=== PATIENT | male | born 1940 | race Caucasian/White ===

== ENCOUNTER 2018-05-03 13:27 | Emergency (ER) | payer MEDICARE, OTHER, SELFPAY ==
[2018-05-03 13:29] VITALS: BP 130/72; PULSE 58; RESP 17; TEMP 37.3; O2SAT 97; BMI 32.5
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
[2018-05-03 15:21] VITALS: PULSE 60; RESP 14; O2SAT 98
--- NOTE | 2018-05-03 21:06 | NURSING ---
PT OFFERED TETNUS SHOT BY ED . HE REFUSED.
== END 2018-05-03 15:21 | disposition home or self-care (01) ==
PROVIDERS: Emergency Provider Emergency Medicine; Family Provider Internal Medicine; PCP Family Medicine
DX: S01.111A Laceration without foreign body of right eyelid and periocular area, initial encounter (principal); Z95.1 Presence of aortocoronary bypass graft; Z79.82 Long term (current) use of aspirin; Z79.899 Other long term (current) drug therapy; W26.8XXA Contact with other sharp object(s), not elsewhere classified, initial encounter; Y93.89 Activity, other specified; Y92.008 Other place in unspecified non-institutional (private) residence as the place of occurrence of the external cause; Y99.8 Other external cause status
CPT/HCPCS: 12013; 99282

== ENCOUNTER 2018-09-24 22:08 | Emergency (ER) | payer MEDICARE, OTHER, SELFPAY ==
[2018-09-24 22:09] VITALS: BP 117/75; PULSE 70; RESP 16; TEMP 36.5; O2SAT 94; BMI 29.8
--- NOTE | 2018-09-24 22:35 | CT_ITS ---
STUDY: CT ABDOMEN AND PELVIS WITHOUT CONTRAST REASON FOR EXAM: Male, 77 years old. Left abdomen and flank pain with cough for one week RADIATION DOSAGE (If Supplied By Facility): CTDIvol = ( 16.74 ) mGy, DLP = ( 874.26 ) mGycm TECHNIQUE: Transaxial images were obtained from the dome of the diaphragm to the symphysis pubis without oral contrast, and without intravenous contrast. Sagittal and coronal images were reconstructed. Individualized dose optimization techniques were used for this CT. COMPARISON: None. FINDINGS: The visualized lung bases are unremarkable. The visualized portions of the heart are within normal limits. Median sternotomy wires. Normal liver. The gallbladder is contracted. Normal spleen. Normal pancreas. Normal bilateral adrenal glands. 1 mm nonobstructing right renal stone. Normal left kidney. Normal visualized stomach. Normal small intestine. There are multiple colonic diverticula consistent with diverticulosis. The appendix is visualized and appears normal. Normal abdominal aorta. Normal inferior vena cava. Normal retroperitoneum. Normal urinary bladder. Normal abdominal wall. There are diffuse degenerative changes of the visualized lumbar spine. 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 CT/Abdomen/Pelvis without Cont IMPRESSION: No evidence of acute intestinal pathology or acute obstructive uropathy. 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 Electronically Signed: Alejandro Ch MD at 0:50 EST Tel , Service support ,
[2018-09-24] MEDS: Ipratropium/Albuterol Sulfate 3 ML AMPUL.NEB INHALATION (22:40)
--- NOTE | 2018-09-24 22:52 | ED.DCSUM_ITS ---
- ER Visit Summary Date of Service: 09/24/18 Chief Complaint: Cough, abdominal pain History of Present Illness: The patient is a 77 M reports cough for the past 1 week. He is bringing up white sputum. He has had head congestion as well. He states last night he developed abdominal pain with cough. He states it feels like it is going to burst through. Today he reports having subjective fever and that he started to sweat. Physical Examination: Vital signs are unremarkable. His O2 sat is 94% on room air. Patient sitting upright in bed no acute distress. Head neck examination is unremarkable. Heart is regular rate and rhythm. Lung sounds are with rales bilaterally with occasional scattered wheezes. Abdomen is soft with mild left upper quadrant tenderness. No palpable hernia is noted. Test Results: CBC is unremarkable. Chemistry studies reveal BUN of 33 and a creatinine 1.46. I do not any labs for the last 2 years to compare to. Two- view chest x-ray shows no acute pulmonary pathology. CT flank shows no acute pathology. Emergency Department Course and Treatment: Patient is given DuoNeb treatment along with Hycodan. On repeat evaluation he states the cough is not quite as harsh. He will be given Tessalon and Zithromax. I believe is an abdominal wall strain from his coughing. I did discuss with him that he may have a hernia, but with no bowel loop caught at this time it is not easily visible on CT imaging. He will be given an abdominal binder to see if this helps with his pain as he coughs. He was instructed to make sure it sits below the ribs so as not to diminish his ability to take a deep breath. Treatment Plan: [] Disposition: Discharge Impression: 1. Bronchitis 2. Abdominal wall strain This note was generated with [employer] software. It may contain incorrect words, spelling, and punctuation that were not noted in review of the chart prior to signing ED Disposition - Plan for ED Patient: Chief Complaint: Cough Referrals: Arsenio Mc MD [Primary Care Provider] -
[2018-09-24 23:05] VITALS: O2SAT 95
[2018-09-24 23:09] LABS: Absolute Neutrophil Count 5.7 X10^3/uL (2.0-7.7); Basophil# 0.02 X10^3/uL; Basophil% 0.3 % (0-1); Eosinophil# 0.13 X10^3/uL; Eosinophils% 1.7 % (0-5); Hemoglobin 13.2 g/dl (13.0-16.5); Lymphocyte % 14.2 % (19-41); Mean Corp Hgb Conc 33.8 g/gl (32-36); Mean Corpuscular Hgb 30.8 pg (27.0-32.0); Mean Corpuscular Volume 91.1 fL (80-94); Mean Platelet Vol. 8.9 fl (6.2-12.0); Monocyte# 0.74 X10^3/uL; Monocyte% 9.6 % (0-10); Neutrophil # 5.74 X10^3/uL (2.7-7.7); Neutrophil % 74.1 % (47-70); Platelet Count 189 K/mm3 (150-450); RBC Distribution Width CV 13.1 % (11.6-14.6); RBC Distribution Width SD 43.5 fl (35.1-43.9); Red Blood Count 4.28 M/mm3 (4.6-6.2); White Blood Count 7.7 K/mm3 (4.4-11.0)
--- NOTE | 2018-09-24 23:10 | RAD_ITS ---
STUDY: X-RAY CHEST REASON FOR EXAM: Male, 77 years old. Cough TECHNIQUE: Frontal and lateral views COMPARISON: None. FINDINGS: Sternotomy wires are noted. The lungs are clear and expanded. There is no demonstrated pleural abnormality. Normal size heart. Normal mediastinum and trini. Normal visualized pulmonary arteries. Normal visualized aortic arch and descending thoracic aorta. Degenerative changes of the thoracic spine. Degenerative changes of the shoulders. There is no demonstrated abnormality of the visualized soft tissue structures of the upper abdomen. RAD/Chest PA and Lateral IMPRESSION: No acute pulmonary pathology of the chest. Electronically Signed: Tylor Nguyen DO at 23:40 EST Tel [phone], Service support ,
[2018-09-24 23:14] LABS: POSITIVE COUNT NO; POSITIVE DIFFERENTIAL NO; POSITIVE MORPHOLOGY NO
[2018-09-24 23:19] LABS: Anion Gap 7 (5-15); BUN 33 mg/dL (7-18); BUN/Creat Ratio 22.6 RATIO (10-20); Calcium,Total 8.5 mg/dL (8.5-10.1); Chloride 100 mmol/L (98-107); Creatinine, Serum 1.46 mg/dL (0.70-1.30); EST Glomerular Filtration Rate 49 mL/min (>60); Est Glom Filt Rate - Afr Amer 60 mL/min (>60); Estimated Creatinine Clearance 41.03 ml/min; Glucose 117 mg/dL (74-106); Potassium 3.6 mmol/L (3.5-5.1); Sodium Level 136 mmol/L (136-145)
[2018-09-24] MEDS: 0.9% Normal Saline 1,000 ML 150 ML IV (23:23)
[2018-09-24 23:26] VITALS: PULSE 82; RESP 20; TEMP 36.8; O2SAT 95
[2018-09-25] VITALS: BP 125/83; PULSE 81; RESP 18; TEMP 36.7; O2SAT 95
--- NOTE | 2018-09-25 00:57 | ED.DEP ---
ED Disposition - Plan for ED Patient: Disposition: Home or Assisted Living Chief Complaint: Cough Instructions: ED Upper Resp Infec Abx Tx, ED Strain Abdominal Muscle Prescriptions: Hydrocodone Bit/Homatropine [Hycodan Syrup] 5 ml PO Q6H PRN PRN 3 Days #80 ml PRN Reason: Cough Azithromycin [Zithromax] 250 mg PO DAILY #4 tablet Benzonatate [Tessalon Perle] 200 mg PO TID PRN PRN #20 capsule PRN Reason: Cough Referrals: Arsenio Mc MD [Primary Care Provider] - 5-7 Days
[2018-09-25] MEDS: Azithromycin 250 MG Tablet 500 MG PO (01:10)
[2018-09-25] MEDS: Benzonatate 100 MG Capsule 200 MG PO (01:10)
[2018-09-25 01:14] VITALS: BP 127/78; PULSE 86; RESP 22; O2SAT 100
== END 2018-09-25 01:24 | disposition home or self-care (01) ==
PROVIDERS: Emergency Provider Emergency Medicine; Family Provider Family Medicine; PCP Family Medicine
DX: J40 Bronchitis, not specified as acute or chronic (principal); S39.011A Strain of muscle, fascia and tendon of abdomen, initial encounter; Z79.82 Long term (current) use of aspirin; Z79.899 Other long term (current) drug therapy; X58.XXXA Exposure to other specified factors, initial encounter; Y93.89 Activity, other specified; Y92.89 Other specified places as the place of occurrence of the external cause; Y99.8 Other external cause status
CPT/HCPCS: 71046; 74176; 80048; 85025; 94640; 96360; 96361; 99284; J7030; A4216

== ENCOUNTER 2020-07-11 10:44 | Day surgery (SDC) | payer MEDICARE, OTHER, SELFPAY ==
[2020-07-11] VITALS (7 sets, daily range): BP systolic 95–155; BP diastolic 55–81; PULSE 59–63; RESP 16–18; TEMP 36.2–36.8; O2SAT 94–98; BMI 28.0
--- NOTE | 2020-07-11 07:48 | PCM.HP.BLA ---
History and Physical Date of Admission: 07/11/20 HISTORY AND PHYSICAL ? Yousif Churchill Followay 1940 ? REFERRING PHYSICIAN: Carina Edwards ([facility])* ? CHIEF COMPLAINT: Consult (Consult Colonoscopy) ? HPI: The patient is a 79 year old male referred for endoscopy. Yousif notes a history of intermittent blood in stool, sometimes mixed in stool and sometimes more in bowl. Notes some weight loss recently. A history of hemorrhoids. Patient denies any change in bowel habits, blood in stools, black tarry stools or abdominal pain. Denies family history of colon issues. ? Yousif has undergone prior endoscopy. Most recent colonoscopy 02/11/[address] Singh with hemorrhoids noted, It was recommended that he have another colonoscopy in 5 years due to a prior history of colon polyps. ? Patient's past medical history is significant for hypertension, s/p CABG and piror CT, hyperlipidemia, rheumatoid arthritis. He follows with Dr. Mc for his chronic medical conditions. Denies problems with sedation in the past. ? PAST MEDICAL HISTORY PAST MEDICAL HISTORY Diagnosis Date ? Acquired hypothyroidism 03/22/2008 ? Arthralgia 11/26/2010 ? Arthritis of left knee 03/29/2011 ? ASHD (arteriosclerotic heart disease) 01/03/2013 ? Sees Dr. Pacheco ? Atopic dermatitis 12/23/2013 ? Benign neoplasm of colon ? ? COLONIC POLYPS ? Carpal tunnel syndrome 11/09/2009 ? Chronic anticoagulation 10/21/2013 ? Chronic left shoulder pain 09/03/2017 ? Diverticulosis of large intestine ? ? DIVERTICULOSIS ? Eczema 12/23/2013 ? Elevated fasting blood sugar 09/03/2017 ? Essential hypertension 08/11/2006 ? Hematuria 10/21/2013 ? Hx of CABG 01/03/2013 ? Internal hemorrhoids ? ? Internal hemorrhoids without mention of complication ? ? Mixed hyperlipidemia 05/29/2005 ? Nocturia 05/29/2005 ? SHAILESH (obstructive sleep apnea) 05/19/2012 ? Patient refused treatment in the past. ? Rheumatoid arthritis (HCC) 09/03/2017 ? Has not wanted to see Rheum ? Status post total left knee replacement 06/15/2016 ? ? PAST SURGICAL HISTORY PAST SURGICAL HISTORY Procedure Laterality Date ? ARTERY BYPASS ? 10/05/12 ? Triple Coronary artery bypass, Dr. Kuldeep Jamil ? COLONOSCOP W/ OR W/O [facility] SPEC ? 05/20/01 ? Colonoscopy ? COLONOSCOP W/ OR W/O [facility] SPEC ? 08/05/05 ? Colonoscopy ? COLONOSCOP W/ OR W/O [facility] SPEC ? 02/11/2011 ? Colonoscopy ? LEFT HEART CATH,PERCUTANEOUS ? 1991 ? Cardiac cath, L heart ? SHOULDER SURGERY HX Left 2018 ? TOTAL HIP REPLACEMENT Left 2017 ? TOTAL KNEE REPLACEMENT Left 2014 ? ? ? CURRENT MEDICATIONS Current Outpatient Medications Medication Sig ? levothyroxine (SYNTHROID) 75 mcg tablet Take one tab by mouth Fri and two on Sundays. ? losartan-hydrochlorothiazide (HYZAAR) 100-25 mg per tablet Take 1 tablet by mouth once daily. ? pravastatin (PRAVACHOL) 80 mg tablet Take 1 tablet by mouth daily at bedtime. ? metoprolol succinate ER (TOPROL XL) 25 mg 24 hr tablet Take 1 tablet by mouth once daily. ? nitroglycerin sublingual (NITROQUICK) 0.4 mg SL tablet Dissolve 1 tablet under the tongue as needed. FOR CHEST PAIN. IF NO RELIEF CALL 911 ? pyridoxine (VITAMIN B-6) 100 mg ORAL tablet Take 1 tablet by mouth once daily. ? aspirin(ECOTRIN LOW STRENGTH 81 MG TAB) Take one(1) tablet daily. ? No current facility-administered medications for this visit. ? ? ALLERGIES: Hydroxychloroquine, Atenolol, and Lipitor [Atorvastatin Calcium] ? PERSONAL HISTORY: SOCIAL HISTORY Social History ? Tobacco Use ? Smoking status: Never Smoker ? Smokeless tobacco: Never Used Substance Use Topics ? Alcohol use: No ? Drug use: Not on file ? FAMILY HISTORY: FAMILY HISTORY FAMILY HISTORY Problem Relation Age of Onset ? other (CT) Father ? ? other (NATURAL CAUSES) Mother ? ? other (CT) Brother ? ? other (CABG) Brother ? ? Heart Brother ? ? None Sister ? ? None Sister ? ? ? REVIEW OF SYMPTOMS: The review of systems data was entered by the nurse and reviewed by me ? Nursing Notes: Malia Miner LPN 06/07/2020 10:12 AM Signed REVIEW OF SYSTEMS: General: The patient denies fatigue, NOTES weight loss, denies weight gain, denies feeling hot, and denies feelings of cold. Eyes: The patient denies glaucoma, denies eye injury/surgery, wears glasses or contacts. Ear/Nose/Throat: The patient denies allergies, denies hayfever, denies ear infections, and denies bloody noses. Cardiovascular: The patient denies chest pain, denies heart disease, denies high blood pressure,denies cardiac stent, denies prior heart attack, denies irregular heart beat, denies high cholesterol, denies poor circulation, denies heart failure, other cardiac issues, denies claudication, denies cold feet, denies peripheral arterial stent. Respiratory: The patient denies tuberculosis, denies pneumonia, denies frequent cough, denies pulmonary embolism, denies shortness of breath, and denies coughing up blood. Gastrointestinal: The patient denies difficulty swallowing, denies acid reflux, denies ulcers, denies vomiting, denies jaundice/hepatitis, denies gallbladder problems, denies black or tarry stools, denies hemorrhoids, denies bleeding from rectum, denies diverticulitis, denies constipation, denies diarrhea, denies loss of stool control, and denies hernias. Kidney/Bladder: The patient denies kidney stones, denies urine infections, and denies bloody urine. Skin: The patient denies a history of skin cancer, denies bleeding/changing moles, and denies a history of skin rash. Neurologic: The patient denies a history of epilepsy/convulsions, denies headaches, denies head/spinal injuries, and denies stroke/TIA. Psychiatric: The patient denies psychiatric medications, denies depression, and denies voices, denies substance abuse. Endocrine: The patient denies thyroid disorders, denies diabetes, and denies hormonal problems. Hematologic: The patient denies a history of bruising, denies bleeding, and denies anemia, denies blood clots. Infections: The patient denies a history of measles and mumps, denies rheumatic fever, and denies sexually transmitted diseases. Musculoskeletal: The patient denies back pain/injury, denies back problems, denies sciatica, denies knee/foot trouble, denies arthritis, or denies gout. ? ? When was patient's last Mammogram screening? N/A ? Last Colonoscopy: 2010 ? Malia Miner LPN I have confirmed and edited as necessary, the PFSH and ROS obtained by others. ? PHYSICAL EXAMINATION: ? General: The patient is 79 year old male, well nourished, well hydrated in no acute distress. The patient is oriented to time, place, and person. ? VITALS: Blood pressure 116/64, pulse 63, temperature 36.3 ?C (97.3 ?F), height 175.3 cm (5' 9), weight 86.5 kg (190 lb 12.8 oz), SpO2 100 %. Body mass index is 28.18 kg/m?. ? HEENT: Normal cephalic, ataumatic, pupils are equally round, sclera are anicteric, mucous membranes are moist, oropharynx is clear. Neck has no masses, asymmetry or lymphadenopathy. ? Respiratory: Clear to auscultation and percussion. Normal respiratory excursion and pattern. ? Cardiac: Examination is regular rate and rhythm. Normal S1/S2 ? Abdominal exam: Soft, nontender, with no palpable masses. No hepatosplenomegaly. No palpable hernias. ? Extremities: no clubbing, cyanosis or edema. No adenopathy. ? LABORATORY VALUES: As Noted ? RADIOLOGIC STUDIES: As Noted ? IMPRESSION: blood in stools, weight loss, history of colon polyps ? PLAN: I have reviewed my findings with the surgeon. Will plan for upper and lower endoscopy. We discussed the risks and benefits of the planned endoscopy. I have informed the patient that complications can occur including failure to complete the endoscopy and perforation. The patient had the opportunity to ask questions concerning the planned endoscopy. My staff has also explained the procedure to the patient in understandable terms and has given the patient printed material concerning the procedure. The patient freely consents to surgery. ? I plan to use Golytely bowel preparation ? We will plan for Monitored Anesthetic Care. ? The patient was offered a surgery/procedure at a [facility] facility. I have counseled the patient regarding the risk of exposure to and/or potential harm posed by the COVID-19 virus with having a surgery/procedure at this time versus the risk of? delaying the surgery/procedure. It is not possible to know either the risk of delaying the surgery or procedure or chance of getting an infection with perfect accuracy, but a joint decision was made between the patient and myself?to proceed at this time with endoscopy. ? Diagnoses: (R63.4) Loss of weight (K92.1) Blood in stool (Z86.010) History of colonic polyps (Z87.19) Hx of hemorrhoids ? ? Rajni Acosta PA-C
[2020-07-11] MEDS: Lactated Ringers 1,000 ML 75 ML IV (11:32)
--- NOTE | 2020-07-11 12:00 | COLBX_PTH ---
PATIENT: DONN DON LOC: EN U#:[id number] AGE/SX: 79/M ROOM: RE07/11/[address]: Dr. Camilla Almodovar MD : 1940 BED: DIS: 07/11/2020 SPEC #: [id number] RECD: 07/11/20 13:51 STATUS: RHINA ARI #: [id number] LEV: 07/11/20 12:[address]: Camilal Almodovar DEPT: SURGICAL PATHOLOGY RECD BY: Yann Harley ENTERED: 07/12/20 06:59 SP TYPE: COLON BX OTHR DR: Dr. Arsenio Mc MD Tissues: A - Gastric mucous membrane B - Sigmoid colon biopsy Procedures: Special Stain Group II Surgery Specimen Level IV Alcian Blue/PAS (control) HEADER OPERATION: Colonoscopy, EGD [place] [place] PRE-OP DIAGNOSIS: Blood in stool, weight loss TISSUE SUBMITTED: A - GE junction biopsy, B - Sigmoid biopsy MICROSCOPIC DIAGNOSIS A. Gastroesophageal junction, biopsy: Mild chronic inflammation. No evidence of intestinal metaplasia. See comment. B. Sigmoid colon, biopsy: Acute colitis. See microscopic description and comment. AM:dang 07/13/20 COMMENT A. Alcian blue/PAS stain with matched control supports the above diagnosis. B. Clinical correlation is suggested. MICROSCOPIC DESCRIPTION Slides are reviewed. B. Sections show expanded lamina propria, mild glandular distortion, cryptitis and focal crypt abscesses. Granulomas are not identified. Fissure ulcers are not seen. GROSS DESCRIPTION A - Received in fixative is one container labeled with the patient's name and designated GE junction biopsy. The specimen consists of two irregular fragments of light martinez soft tissue that in aggregate measure 0.3 x 0.2 x 0.1 cm. The specimen is totally submitted in one cassette. B - Received in fixative is one container labeled with the patient's name and designated sigmoid biopsy. The specimen consists of multiple irregular fragments of light martinez soft tissue that in aggregate measure 0.5 x 0.4 x 0.1 cm. The specimen is totally submitted in one cassette. / SJ:dang 07/12/20 TC:2 CPT: 72237 x2, 66097
--- NOTE | 2020-07-11 12:46 | OP.EGD_ITS ---
Patient Name: Yousif Garcia Procedure Date: 07/11/2020 10:59 AM Date of : 1940 Age: 79 Procedure: Upper GI endoscopy Indications: Suspected esophageal reflux Providers: Camilla Almodovar MD Referring MD: Arsenio Mc MD Medicines: See the Anesthesia note for documentation of the administered medications Patient Profile: Refer to note in patient chart for documentation of history and physical. Complications: No immediate complications. Procedure: Pre-Anesthesia Assessment: - see anesthesia note After obtaining informed consent, the endoscope was passed under direct vision. Throughout the procedure, the patient's blood pressure, pulse, and oxygen saturations were monitored continuously. The Endoscope was introduced through the mouth, and advanced to the second part of duodenum. The upper GI endoscopy was accomplished without difficulty. The patient tolerated the procedure well. Scope In: 12:15:16 PM Scope Out: 12:20:20 PM Total Procedure Duration Time 0 hours 5 minutes 4 seconds Findings: The first portion of the duodenum and second portion of the duodenum were normal. The entire examined stomach was normal. LA Grade A (one or more mucosal breaks less than 5 mm, not extending between tops of 2 mucosal folds) esophagitis with no bleeding was found. Biopsies were taken with a cold forceps for histology. Estimated blood loss was minimal. Impression: - Normal first portion of the duodenum and second portion of the duodenum. - Normal stomach. - LA Grade A reflux esophagitis. Biopsied. Recommendation: - Discharge patient to home (ambulatory). - Resume previous diet. - Continue present medications. - Await pathology results. - My office will telephone with pathology results in 1-2 weeks Procedure Code(s): --- Professional --- 52681, Esophagogastroduodenoscopy, flexible, transoral; with biopsy, single or multiple Diagnosis Code(s): --- Professional --- K21.0, Gastro-esophageal reflux disease with esophagitis CPT copyright 2017 [employer]. All rights reserved. The codes documented in this report are preliminary and upon auto service mechanic review may be revised to meet current compliance requirements. MD Camilla Cunningham MD 07/11/2020 12:46:42 PM This report has been signed electronically. Number of Addenda: 0 Note Initiated On: 07/11/2020 10:59 AM
--- NOTE | 2020-07-11 12:47 | OP.CCLET_ITS ---
07/11/2020 Arsenio Mc MD Re : Upper GI endoscopy procedure for Yousif Garcia Dear Dr. Mc This procedure was performed on Saturday, July 11, 2020. My impressions and recommendations are as follows: Impressions : - Normal first portion of the duodenum and second portion of the duodenum. - Normal stomach. - LA Grade A reflux esophagitis. Biopsied. Recommendations : - Discharge patient to home (ambulatory). - Resume previous diet. - Continue present medications. - Await pathology results. - My office will telephone with pathology results in 1-2 weeks My findings are described in the full procedure note, which is enclosed. If I can be of further assistance, please feel free to contact me at Doctor phone number(s): , Work: . Sincerely, MD Camilla Cunningham MD 07/11/2020 12:46:42 PM This report has been signed electronically.
--- NOTE | 2020-07-11 12:49 | OP.COLON_ITS ---
Patient Name: Yousif Garcia Procedure Date: 07/11/2020 12:20 PM Date of : 1940 Age: 79 Procedure: Colonoscopy Indications: High risk colon cancer surveillance: Personal history of colonic polyps Providers: Camilla Almodovar MD Referring MD: Arsenio Mc MD Medicines: See the Anesthesia note for documentation of the administered medications Patient Profile: Refer to note in patient chart for documentation of history and physical. Last Colonoscopy: several years ago. Complications: No immediate complications. Procedure: Pre-Anesthesia Assessment: - see anesthesia note After I obtained informed consent, the scope was passed under direct vision. Throughout the procedure, the patient's blood pressure, pulse, and oxygen saturations were monitored continuously. The pediatric colonoscope was introduced through the anus and advanced to the cecum, identified by the appendiceal orifice, IC valve and transillumination. The colonoscopy was performed without difficulty. The patient tolerated the procedure well. The quality of the bowel preparation was adequate. Scope In: 12:22:37 PM Scope Withdrawal Time 0 hours 9 minutes 29 seconds Scope Out: 12:39:42 PM Total Procedure Duration Time 0 hours 17 minutes 5 seconds Findings: The perianal and digital rectal examinations were normal. Multiple small and large-mouthed diverticula were found in the sigmoid colon. Non-bleeding internal hemorrhoids were found. Localized mild inflammation characterized by congestion (edema), erythema and friability was found in the sigmoid colon. Biopsies were taken with a cold forceps for histology. Verification of patient identification for the specimen was done by the nurse. Estimated blood loss was minimal. Impression: - Diverticulosis in the sigmoid colon. - Non-bleeding internal hemorrhoids. - Localized mild inflammation was found in the sigmoid colon. Biopsied. Recommendation: - Discharge patient to home (ambulatory). - Resume previous diet. - Continue present medications. - Await pathology results. - Please make an appointment with Rajni Acosta PA-C to review the pathology results and discussion of treatment in 1 week - Repeat colonoscopy is recommended for surveillance. The colonoscopy date will be determined after pathology results from today's exam become available for review. Procedure Code(s): --- Professional --- 50799, Colonoscopy, flexible; with biopsy, single or multiple Diagnosis Code(s): --- Professional --- Z86.010, Personal history of colonic polyps K64.8, Other hemorrhoids K52.9, Noninfective gastroenteritis and colitis, unspecified K57.30, Diverticulosis of large intestine without perforation or abscess without bleeding CPT copyright 2017 [employer]. All rights reserved. The codes documented in this report are preliminary and upon medical biller coder review may be revised to meet current compliance requirements. MD Camilla Cunningham MD 07/11/2020 12:49:35 PM This report has been signed electronically. Number of Addenda: 0 Note Initiated On: 07/11/2020 12:20 PM
--- NOTE | 2020-07-11 12:50 | OP.CCLET_ITS ---
07/11/2020 Arsenio Mc MD Re : Colonoscopy procedure for Yousif Garcia Dear Dr. Mc This procedure was performed on Saturday, July 11, 2020. My impressions and recommendations are as follows: Impressions : - Diverticulosis in the sigmoid colon. - Non-bleeding internal hemorrhoids. - Localized mild inflammation was found in the sigmoid colon. Biopsied. Recommendations : - Discharge patient to home (ambulatory). - Resume previous diet. - Continue present medications. - Await pathology results. - Please make an appointment with Rajni Acosta PA-C to review the pathology results and discussion of treatment in 1 week - Repeat colonoscopy is recommended for surveillance. The colonoscopy date will be determined after pathology results from today's exam become available for review. My findings are described in the full procedure note, which is enclosed. If I can be of further assistance, please feel free to contact me at Doctor phone number(s): , Work: . Sincerely, MD Camilla Cunningham MD 07/11/2020 12:49:35 PM This report has been signed electronically.
== END 2020-07-11 13:45 | disposition home or self-care (01) ==
LOC: EN 10:44 → AC 10:44
PROVIDERS: Anesthesiology; PCP Family Medicine; Referring Provider Family Medicine; Visit Provider Surgery
PROC: 0DJD8ZZ Inspection of Lower Intestinal Tract, Via Natural or Artificial Opening Endoscopic (ICD-10-PCS; CPT 45378; principal; 2020-07-11 11:55)
DX: K57.30 Diverticulosis of large intestine without perforation or abscess without bleeding (principal); K64.8 Other hemorrhoids; Z86.010 Personal history of colon polyps; K21.00 Gastro-esophageal reflux disease with esophagitis, without bleeding; K52.89 Other specified noninfective gastroenteritis and colitis; M06.9 Rheumatoid arthritis, unspecified; I10 Essential (primary) hypertension; I25.2 Old myocardial infarction; E03.9 Hypothyroidism, unspecified; R63.4 Abnormal weight loss; Z79.899 Other long term (current) drug therapy; Z20.828 Contact with and (suspected) exposure to other viral communicable diseases
CPT/HCPCS: 43239; 45380; 87635; 88305; 88313; C9803; J7050; J7120; J2405; U0003

== ENCOUNTER → 2023-10-09 | Outpatient (CLI) | payer MEDICARE, OTHER, SELFPAY ==
--- NOTE | 2023-10-09 12:47 | CT_ITS ---
STUDY: CT MAXILLOFACIAL SINUSES REASON FOR EXAM: Male, 82 years old. CHRONIC SINUSITIS RADIATION DOSAGE (If Supplied By Facility): CTDIvol = ( 33.06 ) mGy, DLP = ( 800.79 ) mGycm TECHNIQUE: The patient was scanned in a multi detector CT scanner. High resolution axial imaging was performed without the administration of intravenous contrast material. Sagittal and coronal images were reconstructed. Individualized dose optimization techniques were used for this CT. COMPARISON: None. FINDINGS: FRONTAL SINUSES: Normal aeration, without mucosal inflammatory disease. ETHMOIDAL SINUSES: Mucosal thickening in the left anterior ethmoid sinus. Normal remaining ethmoid sinuses. MAXILLARY SINUSES: Minimal mucosal thickening in the maxillary sinuses. 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 SPHENOIDAL SINUSES: Normal aeration, without mucosal inflammatory disease. Narrowing of the left maxillary ostium but no obstruction due to presence of left Tash cell. Mild stenosis of the right maxillary ostium and right infundibular due to the minimal mucosal thickening. Normal bilateral semilunar hiatus and bilateral lateral nasal valle. Bilateral conchae bullosa without opacification or mucosal thickening of the middle turbinates. Normal bilateral inferior turbinates. Normal midline nasal septum. There is patency of the bilateral nasal airways. The visualized osseous structures are normal. The visualized bilateral orbital contents are normal. Prominent tubular calcifications in both internal carotid artery siphons. CT/Sinus/Facial Bone IMPRESSION: 1. Minimal mucosal thickening in the maxillary sinuses and a left anterior ethmoid air cell. 2. Narrowing of the bilateral ostiomeatal units due to small left Tash cell and mucosal thickening in the right maxillary ostium. 3. 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 4. Normal bilateral conchal bullosa. 5. No obstructing mass along the nasal vault and in both lateral nasal valle. 6. Midline nasal septum. 7. Prominent tubular calcifications of both internal carotid artery siphons. MRA of the head will help evaluate internal carotid artery stenosis since the prominent calcified plaques will limit evaluation of stenosis on CTA head. Electronically Signed: Jeffery Johnson MD at 13:12 EST ,
== END | disposition home or self-care (01) ==
LOC: CT 12:46
PROVIDERS: PCP Family Medicine; Referring Provider Otolaryngology; Visit Provider Otolaryngology
DX: J32.9 Chronic sinusitis, unspecified (principal)
CPT/HCPCS: 70486

== ENCOUNTER → 2024-01-02 | Outpatient (CLI) | payer MEDICARE, OTHER, SELFPAY ==
--- NOTE | 2024-01-02 10:53 | ECHOD_ITS ---
Reason For Study: ASHD Procedure This was a 2D Doppler, Color Flow transthoracic echocardiogram. Exam performed in department. Left Ventricle Normal size and thickness. The left ventricular ejection fraction is 65 %. Diastolic function is indeterminate. Right Ventricle Normal right ventricle. Atria The left atrium is mildly enlarged. Normal right atrium. Mitral Valve Mild (1+) mitral valve insufficiency. Tricuspid Valve Mild tricuspid valve insufficiency. Normal pulmonary artery pressure. Aortic Valve Trisinus/trileaflet aortic valve. Mild diffuse aortic valve thickening. Mild aortic stenosis. Pulmonic Valve The pulmonic valve is not well visualized. Great Vessels Mildly dilated aortic root. Pericardium/Pleural No pericardial effusion. MMode/2D Measurements & Calculations LVIDd: 5.3 cm IVSd: 0.80 cm Ao root diam: 4.0 cm LVIDs: 3.1 cm LVPWd: 0.80 cm LA dimension: 4.2 cm FS: 41.5 % LAV(MOD-bp): 80.1 ml LVAd ap4: 33.4 cm2 SV(MOD-sp4): 66.9 ml LAV(MOD-bp) Indexed: 39.6 ml/m2 LVLd ap4: 8.6 cm LAV(MOD-sp2): 70.7 ml EDV(MOD-sp4): 104.6 ml LAV(MOD-sp4): 86.3 ml EDV(sp4-el): 109.6 ml LVAs ap4: 18.0 cm2 LVLs ap4: 7.1 cm ESV(MOD-sp4): 37.7 ml ESV(sp4-el): 38.8 ml EF(MOD-sp4): 64.0 % EF(sp4-el): 64.6 % SV(sp4-el): 70.8 ml Aortic Valve Planimetry: 1.6 cm2 LA A4 area: 25.2 cm2 TAPSE: 2.0 cm Time Measurements MV dec time: 0.19 sec Doppler Measurements & Calculations MV E max saul: 77.5 cm/sec Lat Peak E' Saul: 9.5 cm/sec Med Peak E' Saul: 7.4 cm/sec MV A max saul: 79.1 cm/sec E/E' lat: 8.1 E/E' med: 10.5 MV E/A: 0.98 MV V2 max: 106.1 cm/sec MV P1/2t max saul: 106.1 cm/sec Ao V2 max: 183.9 cm/sec MV max P.5 mmHg MV P1/2t: 80.7 msec Ao max P.5 mmHg MV V2 mean: 48.5 cm/sec MV dec slope: 385.0 cm/sec2 Ao V2 mean: 119.2 cm/sec MV mean P.2 mmHg Ao mean P.7 mmHg MV V2 VTI: 44.2 cm MVA(P1/2t): 2.7 cm2 Ao V2 VTI: 44.2 cm AV (velocity ratio): 0.54 LV V1 max: 96.7 cm/sec PA V2 max: 109.0 cm/sec TR max saul: 249.8 cm/sec LV V1 max P.7 mmHg PA V2 mean: 70.9 cm/sec TR max P.0 mmHg LV V1 mean P.9 mmHg LV V1 mean: 63.9 cm/sec LV V1 VTI: 24.0 cm ECHO/Echo Complete Interpretation Summary The left ventricular ejection fraction is 65 %. Diastolic function is indeterminate. The left atrium is mildly enlarged. Mild (1+) mitral valve insufficiency. Mild tricuspid valve insufficiency. Mild diffuse aortic valve thickening. Mild aortic stenosis. Mildly dilated aortic root. Ordering Physician: Koko Jamil Referring Physician: Koko Jamil Performed By: Mitchel Ceja RCS
== END | disposition home or self-care (01) ==
LOC: CVS 10:51
PROVIDERS: PCP Family Medicine; Referring Provider Internal Medicine Cardiovascular Disease; Visit Provider Internal Medicine Cardiovascular Disease
DX: I25.10 Atherosclerotic heart disease of native coronary artery without angina pectoris (principal); R01.1 Cardiac murmur, unspecified
CPT/HCPCS: 93306

== ENCOUNTER 2024-09-09 13:13 | Day surgery (SDC) | payer MEDICARE, OTHER, SELFPAY ==
--- NOTE | 2024-09-06 07:55 | EKG12_ITS ---
Test Reason : ROUTINE Blood Pressure : */* mmHG Vent. Rate : 62 BPM Atrial Rate : 62 BPM P-R Int : 208 ms QRS Dur : 84 ms QT Int : 410 ms P-R-T Axes : 32 8 43 degrees QTcB Int : 416 ms Normal sinus rhythm Normal ECG Confirmed by RAMIRO WEST, NIRU ([id number]), editor managing newspaper PREETI GUTIÉRREZ ([id number]) on 09/06/2024 2:12:46 PM Referred By: Tere Hernandez Confirmed By: NIRU RUBIO MD
[2024-09-09 13:28] VITALS: BP 125/67; PULSE 70; RESP 18; TEMP 36.2; O2SAT 99; BMI 30.9
--- NOTE | 2024-09-09 13:28 | PCM.HP.BLA ---
History and Physical Date of Admission: 09/09/24 The patient is examined and there are no changes to the H&P dated 08/24/2024. Informed consent was obtained for excision lesion of his left nose. The specimen will be sent to pathology for evaluation. He is aware the potential need for further surgery depending on the final pathology. Informed consent was obtained. 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
[2024-09-09 14:00] VITALS: BP 141/72; BP 146/79; O2SAT 97; O2SAT 98
[2024-09-09] MEDS: Povidone Iodine 30 ML Opthalmic Sol 1 DRP (14:00)
[2024-09-09] MEDS: Lidocaine 1% /Epi 1:100 9 ML, Sodium Bicarbonate 1 MEQ OPERA.SITE (14:08)
--- NOTE | 2024-09-09 14:15 | LES_PTH ---
PATIENT: DONN DON LOC: [facility] [place] U#:[id number] AGE/SX: 83/M ROOM: RE09/09/[address]: Dr. Tere Hernandez MD : 1940 BED: DIS: 09/09/2024 SPEC #: [id number] RECD: 09/09/24 18:04 STATUS: RHINA RESis #: [id number] LEV: 09/09/24 14:[address]: Tere Hernandez DEPT: SURGICAL PATHOLOGY RECD BY: Netta Becerra ENTERED: 09/10/24 09:36 SP TYPE: Lesion OTHR DR: MD Dr. 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 Negative for malignancy. See comment. 09/13/2024 COMMENT Clinical correlation and appropriate follow up are necessary. MICROSCOPIC DESCRIPTION Slides are reviewed. GROSS DESCRIPTION Received in fixative is one container labeled with the patient's name and designated Lesion of left nose. The specimen consists of a fragment of dome (round) -shaped skin measuring in diameter of 9.0mm and depth is 4.0 to 5.0mm. Surgical margin is inked green. The specimen is serially sectioned and totally submitted in one cassette with the two smallest triangular fragments representing end margins for a total of four fragments in one cassette. RIO. 09/10/2024 TC:5 CPT:92427
--- NOTE | 2024-09-09 14:31 | EX.PCM.DISCH ---
Discharge Instructions Dressing / Incision Additional Dressing/Incision Instructions:: Keep your head elevated (recliner position) for the next 2-3 nights to prevent swelling and bleeding. Take the oral antibiotic (Keflex) 2 times a day until finished. Keep the tape on your nose dry. Leave it in place until seen in the office. (If the tape falls off, apply antibiotic ointment like Neosporin, bacitracin, or triple antibiotic ointment daily) Follow Up Care Please Follow Up With: Tere Hernandez MD When: In 1 to 2 weeks Test Results: Test results from this visit will be discussed in further detail at your follow-up appointment, if applicable. Discharge Plan Admission Attending Provider: Tere Hernandez Primary Care Provider: Arsenio Mc Consulting Providers: Miriam Manjarrez Print Language: Chilean Discharge Orders/Prescriptions Prescriptions: New cephalexin 500 mg capsule 500 mg PO BID 5 Days Qty: 10 0RF No Action pravastatin 80 mg tablet 80 mg PO QHS levothyroxine 100 mcg tablet 100 mcg PO DAILY nitroglycerin 0.4 mg tablet, sublingual 0.4 mg sublingual Q5-15M PRN (Reason: chest pain) Rx Instructions: do not exceed 3 doses per episode pyridoxine (vitamin B6) 100 mg tablet 100 mg PO DAILY aspirin [Adult Low Dose Aspirin] 81 mg tablet,delayed release (DR/EC) 81 mg PO DAILY losartan-hydrochlorothiazide [Hyzaar] 1 TAB tablet 1 tab PO DAILY Patient Comments: blood pressure metoprolol succinate 25 MG tablet extended release 24 hr 25 mg PO DAILY Referrals / Follow Up: Arsenio Mc MD [Primary Care Provider] - Disposition Disposition (needs filled in before D/C Order can be placed): Home, Self Care
--- NOTE | 2024-09-09 14:34 | PCM.OPRPT ---
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 He presents for excision of the lesion with submission for pathologic evaluation. He is aware the potential need for further surgery depending on the resulting pathology. Informed consent was obtained and he is marked in the preop holding area prior to surgery. The patient is brought to the operating room and placed on the operating room table in the supine position. The nose is prepped and draped in the usual sterile fashion. 1% Xylocaine with epinephrine is used for local anesthetic. Following this, the neoplasm is excised using radiofrequency cautery and passed off the operative field to be sent to pathology. Hemostasis is controlled with cautery. The site is then closed initially with interrupted silk suture. Further refinement the closure is done with a running chromic suture. Dermabond and Steri-Strips are placed on the site. He tolerated the procedure well was taken to the recovery area in an awake and stable condition. Needle and sponge counts are correct. Surgical Findings: Neoplasm skin of nose Complications Complications: No Admit VTE Documentation VTE Present on Admission: No Reason prophylaxis not ordered: Treatment Not Indicated
== END 2024-09-09 14:57 | disposition home or self-care (01) ==
LOC: SDC 13:13 → AC 13:14
PROVIDERS: PCP Family Medicine; Referring Provider Plastic Surgery; Visit Provider Plastic Surgery
PROC: (CPT 11442; principal; 2024-09-09 14:05)
DX: L82.0 Inflamed seborrheic keratosis (principal); L83 Acanthosis nigricans; E78.00 Pure hypercholesterolemia, unspecified; I10 Essential (primary) hypertension; E03.9 Hypothyroidism, unspecified; I25.10 Atherosclerotic heart disease of native coronary artery without angina pectoris; Z79.82 Long term (current) use of aspirin; Z79.890 Hormone replacement therapy; Z79.899 Other long term (current) drug therapy
CPT/HCPCS: 11442; 88305; 93005

== ENCOUNTER → 2024-09-10 | Outpatient (CLI) | payer MEDICARE, OTHER, SELFPAY ==
--- NOTE | 2024-09-13 10:53 | STRESSREP_ITS ---
Stress Test Report Date: 09/13/2024 Procedure: Pharmacologic stress nuclear imaging study Indications: Chest pain Consent: Per the patient Procedure: The patient underwent pharmacologic (Regadenoson) evaluation with a peak heart rate of 105 beats per minute (77%predicted maximal heart rate) and a peak blood pressure of 150/92 mmHg. The baseline ECG demonstrated normal sinus rhythm. EKG during lexiscan infusion revealed no significant ischemic changes. EKG post infusion revealed no significant ischemic changes [There were no cardiac dysrhythmias pretest, during pharmacologic infusion, or recovery]. [There was no complaint of chest discomfort during pharmacologic infusion or recovery]. He had some back discomfort which resolved quickly The examination was discontinued secondary to completion of protocol. Impression: 1. Lexiscan stress test test is negative for Lexiscan infusion induced EKG changes of ischemia. 2. Lexiscan stress test test is negative for Lexiscan infusion induced chest pain. 3. Results of the nuclear portion of the test is as below Myocardial perfusion imaging study: Technique: The patient was injected with 12 millicuries of technetium 99m Cardiolite and subsequently rest SPECT Cardiolite nuclear imaging was obtained in the horizontal long, vertical long, and short axis views. The patient underwent pharmacologic [Regadenoson 0.4mg] evaluation. Please see above for details. The patient was injected with 36 millicuries of technetium 99m Cardiolite and subsequently stress SPECT Cardiolite nuclear imaging was obtained in the horizontal long, vertical long, and short axis views. A gated Cardiolite study at peak stress was obtained. Interpretation: Rest and stress SPECT Cardiolite nuclear imaging status post realignment, normalization, and attenuation correction demonstrate no evidence of significant ischemia or infarction. Overall normal myocardial radioisotope uptake. Gated images reveal no significant regional wall motion abnormalities. The reported LVEF is 67%. Impression: 1. There is no evidence of significant ischemia or infarction. 2. Estimated ejection fraction is 67%. This note was generated with [employer] software. It may contain incorrect words, spelling, and punctuation that were not noted in checking the note before signing.
== END | disposition home or self-care (01) ==
LOC: CVS 06:49
PROVIDERS: PCP Family Medicine; Referring Provider Family Medicine; Visit Provider Family Medicine
DX: I25.10 Atherosclerotic heart disease of native coronary artery without angina pectoris (principal); R05.3 Chronic cough; R07.89 Other chest pain; Z95.1 Presence of aortocoronary bypass graft
CPT/HCPCS: 78452; 93017; A9500; A4216; J2785

== ENCOUNTER → 2025-02-10 | Outpatient (CLI) | payer MEDICARE, OTHER, SELFPAY ==
[2025-02-12 23:07] LABS: Immunoglobulin E 110 IU/mL (6-495)
[2025-02-13 03:08] LABS: Alternaria tenuis <0.10 kU/L (Class 0); Ash, White <0.10 kU/L (Class 0); Bermuda Grass <0.10 kU/L (Class 0); Birch <0.10 kU/L (Class 0); Black Walnut <0.10 kU/L (Class 0); Cat Hair / Dander,Stand <0.10 kU/L (Class 0); Cedar, Mountain <0.10 kU/L (Class 0); Cladosporium herbarum <0.10 kU/L (Class 0); Cockroach, American <0.10 kU/L (Class 0); Cottonwood <0.10 kU/L (Class 0); D farinae Mite <0.10 kU/L (Class 0); D pteronyssinus <0.10 kU/L (Class 0); Dog Epithelia <0.10 kU/L (Class 0); Elm, American White <0.10 kU/L (Class 0); Immunoglobulin E 97 IU/mL (6-495); Maple/Box Elder <0.10 kU/L (Class 0); Mouse Urine <0.10 kU/L (Class 0); Mulberry, White <0.10 kU/L (Class 0); Oak, White <0.10 kU/L (Class 0); Pecan <0.10 kU/L (Class 0); Penicillium Notatum <0.10 kU/L (Class 0); Pigweed, Rough <0.10 kU/L (Class 0); Ragweed, Short/Common <0.10 kU/L (Class 0); Russian Thistle <0.10 kU/L (Class 0); Sheep Sorrel <0.10 kU/L (Class 0); Sycamore, American <0.10 kU/L (Class 0); Timothy Grass <0.10 kU/L (Class 0)
== END | disposition home or self-care (01) ==
PROVIDERS: PCP Family Medicine; Referring Provider Internal Medicine Critical Care Medicine; Visit Provider Internal Medicine Critical Care Medicine
DX: R05.3 Chronic cough (principal); J45.909 Unspecified asthma, uncomplicated
CPT/HCPCS: 36415; 82785; 86003; 87070; 87205